=== PATIENT | male | born 1995 | race African-American/Black ===

== ENCOUNTER 2017-07-07 01:38 | Emergency (ER) | payer SELFPAY ==
[~2017-07-07] VITALS: Ht 162.6 cm; Wt 45.0 kg
[2017-07-07 01:53] VITALS: BP 123/90
[2017-07-07] MEDS ORDERED: SODIUM CHLORIDE 0.9% 1,000 ML IV ONE (02:09)
[2017-07-07 02:25] LABS: BASOPHILS % 0.7 % (0.0-2.0); EOSINOPHILS % 1.8 % (0.0-5.0); HEMATOCRIT. 43.3 % (42.0-52.0); HEMOGLOBIN. 14.4 g/dL (14.0-18.0); LYMPHOCYTES % 30.7 % (20.0-50.0); MEAN CORPUSCULAR HEMOGLOBIN 27.5 pg (28.0-32.0); MEAN CORPUSCULAR VOLUME 82.7 fL (80.0-94.0); MEAN PLATELET VOLUME 9.1 fl (7.4-10.4); MONOCYTES % 9.2 % (2.0-8.0); NEUTROPHILS % 57.6 % (40.0-76.0); PLATELET 236 x1000/uL (130-400); RED BLOOD CELL COUNT 5.24 mill/uL (4.7-6.1); RED CELL DISTRIBUTION WIDTH 13.4 % (11.6-14.6)
[2017-07-07 02:31] LABS: CHLORIDE 107 mEq/L (98-107)
[2017-07-07 02:36] LABS: CARBON DIOXIDE 32 mEq/L (21-32)
[2017-07-07] MEDS ORDERED: IOHEXOL-300 100 ML BOTTLE ONE (02:50)
== END 2017-07-07 03:23 | disposition left against medical advice (07) ==
LOC: ER 01:38
DX: S51.031A Puncture wound without foreign body of right elbow, initial encounter (principal); W19.XXXA Unspecified fall, initial encounter; Y93.89 Activity, other specified; Y92.89 Other specified places as the place of occurrence of the external cause; Y99.8 Other external cause status
CPT/HCPCS: 36415; 80048; 85025; 96360; 99284; J7030; Z7610; Q9967